=== PATIENT | female | born 1965 | race Caucasian/White ===

== ENCOUNTER 2023-04-17 07:24 | Emergency (ER) | payer MEDICAID ==
[~2023-04-17] VITALS: Ht 160 cm; Wt 79.5 kg
[~2023-04-17 07:24] MED LIST: ARIP30TA7 PO; DULO30CA52 PO; GABA-530 PO; HYDR-4383 PO; METF500T PO
[2023-04-17 07:30] VITALS: BP 158/114; PULSE 89; RESP 18; TEMP 98.7; O2SAT 96
== END 2023-04-17 09:17 | disposition left against medical advice (07) ==
LOC: ER 07:24
DX: R51.9 Headache, unspecified (principal); R22.0 Localized swelling, mass and lump, head; Z53.21 Procedure and treatment not carried out due to patient leaving prior to being seen by health care provider
CPT/HCPCS: 99281

== ENCOUNTER 2024-03-05 10:45 | Outpatient (CLI) | payer MEDICAID | END 2024-03-05 23:59 | disposition home or self-care (01) | LOC: RAD 10:45 | PROVIDERS: ATTEND Nurse Practitioner Family | DX: M17.12 Unilateral primary osteoarthritis, left knee (principal); M25.562 Pain in left knee | CPT/HCPCS: 73560 ==

== ENCOUNTER 2024-03-16 07:44 | Emergency (ER) | payer MEDICAID ==
[~2024-03-16] VITALS: Ht 160 cm; Wt 81.4 kg
[2024-03-16] MEDS: ketorolac trometh 30MG/ML vial 30 MG/ML VIAL IM ONE (08:58)
[2024-03-16 09:00] VITALS: BP 145/95; PULSE 79; TEMP 99.5; O2SAT 99
[2024-03-16 09:08] VITALS: RESP 16
== END 2024-03-16 09:12 | disposition home or self-care (01) ==
LOC: ER 07:44
DX: S86.812A Strain of other muscle(s) and tendon(s) at lower leg level, left leg, initial encounter (principal); M25.462 Effusion, left knee; M19.90 Unspecified osteoarthritis, unspecified site; Z88.5 Allergy status to narcotic agent; Z79.899 Other long term (current) drug therapy; Z79.84 Long term (current) use of oral hypoglycemic drugs; X58.XXXA Exposure to other specified factors, initial encounter; Y93.89 Activity, other specified; Y92.89 Other specified places as the place of occurrence of the external cause; Y99.8 Other external cause status
CPT/HCPCS: 73564; 96372; 99283; J1885; A6449

== ENCOUNTER 2025-05-13 13:35 | Emergency (ER) | payer MEDICAID ==
[~2025-05-13] VITALS: Ht 157.5 cm; Wt 87.4 kg
[2025-05-13 13:48] VITALS: TEMP 98
--- NOTE | 2025-05-13 14:32 | Physician Documentation ---
History of Present Illness ~ Chief Complaint: Hypertension Stated Complaint: HIGH BLOOD PRESSURE Time Seen by MD: 14:01 Source: patient Mode of Arrival: POV Exam Limitations: no limitations HPI 59-year-old female was brought in by [facility] for having headache and high blood pressure. Patient was seen by her primary care provider about a week ago and was noted to have elevated blood pressure and placed on lisinopril. Patient states when she takes lisinopril it gives her a headache and she gets dizzy and feels that way all day. Patient states when she does not take the li sinopril she does not feel that way. Patient denies any chest pain or shortness of breath. Patient did take the lisinopril today. Patient does have a follow up appointment with her primary care provider on Friday Medication Reconciliation Allergies: Coded Allergies: morphine (Unverified Allergy, Unknown, HIVES, 05/13/25) Scheduled Aripiprazole* (Abilify*), 1 TAB PO HS, (Reported) Duloxetine HCl (Duloxetine HCl), 1 CAP PO HS, (Reported) Gabapentin (Gabapentin), 1 CAP PO HS, (Reported) Hydrocodone/Acetaminophen (Arnegard 5-325 Tablet), 1 TAB PO Q12H PRN Metformin Hcl* (Glucophage*), 1.5 TAB PO HS, (Reported) Scheduled PRN Hydrocodone/Acetaminophen (Arnegard 5-325 Tablet), 1-2 TAB PO Q4HPRN PRN for pain Past Medical History Past Medical History: Hypertension, Arthritis Past Surgical History: no surgical history Alcohol Use: None Review of Systems All Other Systems at this time: Reviewed and Negative Physical Exam Vital Signs: RN Vital Signs have been reviewed: Yes, Temperature: 98.0, Source: Temporal, Heart Rate: 109, Respiratory Rate: 16, BP: 162/95, Pulse Oximetry: 98, Weight: 87.400 Oxygen Flow Rate: 0 Physical Exam General: Alert, no apparent distress. HEENT: moist mucous membranes. Neck: Full range of motion. Respiratory: No respiratory distress speaking in full sentences Chest: No accessory muscle use. Cardiovascular: Appears well perfused Neurologic: Oriented x4. Psychiatric: Normal mood and affect. Skin: Normal color, warm and dry. No edema, no ecchymosis. Progress Results/Orders Results/Orders Vital Signs 05/13/25 05/13/25 13:48 14:24 Temp 98.0 Pulse 106 109 Resp 18 16 B/P (MAP) 152/113 162/95 (117) Pulse Ox 97 98 O2 Flow Rate 0 0 Medical Decision Making Findings Patient is currently being evaluated by primary care for hypertension and has a follow up for hypertension on Friday. Patient's blood pressures have been in the 160s and 150s systolic. Patient feels dizzy with a headache on lisinopril so we will change to amlodipine until she sees her primary care provider. Departure Time of Disposition: 14:34 Disposition: HOME / SELF CARE / HOMELESS Impression: Primary Impression: Benign hypertension Condition: Stable Discharge Instructions: Hypertension, Adult Additional Instructions: Blood pressures have been systolically in the 160s and 150s with your symptoms being closely associated when you take the lisinopril stopped taking the lisinopril and start taking amlodipine. Maintain your follow up appointment with your primary care provider for Friday to discuss continuation of care and treatment of hypertension Referrals: NO PRIMARY CARE PROVIDER (PCP) Prescriptions Amlodipine Besylate (Amlodipine Besylate) 10 Mg Tablet 1 TABLET PO DAILY, #30 TABLET 0 Refills Prov: HELEN MITCHELL NP 05/13/25 Education Educated: Patient Educated regarding: diagnosis, treatment, need for follow up Signature Scribe Signature: No scribe Attestation: The note accurately reflects work and decisions made by me.Helen PATEL 05/13/25 14:39 HELEN MITCHELL NP May 13, 2025 14:32
[2025-05-13] MEDS ORDERED: AMLO10TA PO (14:39)
[2025-05-13 14:40] VITALS: BP 116/95; PULSE 109; RESP 16; O2SAT 98
== END 2025-05-13 14:49 | disposition home or self-care (01) ==
LOC: ER 13:35
DX: I10 Essential (primary) hypertension (principal); M19.90 Unspecified osteoarthritis, unspecified site; Z88.5 Allergy status to narcotic agent; Z79.899 Other long term (current) drug therapy
CPT/HCPCS: 99282